=== PATIENT | female | born 1935 | race Caucasian/White ===

== ENCOUNTER 2021-12-22 11:55 | Inpatient (IN) | payer MEDICARE, BC ==
[2021-12-22 12:54] LABS: ALT (SGPT) 8 U/L (8-55); AST (SGOT) 15 U/L (5-34); Albumin 4.2 g/dL (3.4-4.8); Alkaline Phosphatase 168 U/L (40-110); Anion Gap 19 mmol/L (10-20); BUN (Urea Nitrogen) 57 mg/dL (9.8-20.1); Bilirubin, Total 0.8 mg/dL (0.2-1.2); Calc. Creatinine Clearance 0 mL/min (70-130); Calcium 11.1 mg/dL (7.8-10.44); Carbon Dioxide 20 mmol/L (23-31); Chloride 103 mmol/L (98-107); Estimated GFR 21; Globulin 2.6 g/dL (2.4-3.5); Glucose 111 mg/dL (83-110); Potassium 4.8 mmol/L (3.5-5.1); Protein, Total 6.8 g/dL (5.8-8.1); Sodium 137 mmol/L (136-145)
[2021-12-22 13:15] LABS: #Basophils 0.1 thou/uL (0.0-0.2); #Lymphocytes 1.5 thou/uL (1.20-3.40); #Monocytes 0.6 thou/uL (0.11-0.59); #Neutrophils 4.6 thou/uL (1.40-6.50); %Eosinophils 0.1 % (0.0-10.0); %Lymphocytes 22.8 % (21.0-51.0); %Monocytes 8.3 % (0.0-10.0); %Neutrophils 67.8 % (42.0-75.0); CKMB 1.4 ng/mL (0-6.6); Hemoglobin 12.6 g/dL (12.0-16.0); Large Platelets MODERATE; MDiff Complete? YES; Macrocytosis SLIGHT = 6-15 cells (100X) (0-5/hpf); Mean Corpuscular HGB CONC 32.8 g/dL (32.0-36.0); Mean Corpuscular Hemoglobin 33.7 pg (27.0-31.0); Mean Platelet Volume 12.8 fL (7.4-10.4); Ovalocytes SLIGHT = 2-5 cells (100X) (0-1/hpf); Platelet Count 112 thou/uL (130-400); Platelet Morphology Comment Appears Decreased; Polychromasia SLIGHT = 2-3 cells (100X) (0-2/hpf); RBC Distribution Width 13.4 % (11.5-14.5); Red Blood Cell (RBC) Count 3.73 mill/uL (4.20-5.40); White Blood Cell (WBC) Count 6.7 thou/uL (4.8-10.8)
[2021-12-22 13:54] LABS: Magnesium 1.9 mg/dL (1.6-2.6)
[2021-12-22] MEDS ORDERED: Enoxaparin Sodium 30 MG/0.3 ML SYRINGE SC SCH (14:30)
[2021-12-22] MEDS ORDERED: Furosemide 40 MG/4 ML VIAL SLOW IVP SCH (14:45)
[2021-12-22 16:34] VITALS: BMI 30.4
[2021-12-22 17:19] LABS: Troponin I 0.061 ng/mL (< 0.028)
[2021-12-22] MEDS: Heparin 5,000 UNITS/ML VIAL SC SCH (20:47)
[2021-12-23] MEDS ORDERED: Docusate 100 MG CAP PO PRN (07:54)
[2021-12-23] MEDS ORDERED: Acetaminophen ER (8hr) 650 MG TAB PO PRN (07:54)
[2021-12-23] MEDS ORDERED: Spironolactone 25 MG TAB PO SCH (08:00)
[2021-12-23 08:37] LABS: Anion Gap 17 mmol/L (10-20); BUN (Urea Nitrogen) 62 mg/dL (9.8-20.1); Calc. Creatinine Clearance 24 mL/min (70-130); Calcium 10.9 mg/dL (7.8-10.44); Carbon Dioxide 20 mmol/L (23-31); Chloride 105 mmol/L (98-107); Estimated GFR 20; Glucose 89 mg/dL (83-110); Magnesium 1.9 mg/dL (1.6-2.6); Phosphorus 3.1 mg/dL (2.3-4.7); Potassium 4.5 mmol/L (3.5-5.1); Sodium 137 mmol/L (136-145)
[2021-12-23] MEDS ORDERED: Aspirin 81 mg Enteric Coated Tablet PO SCH (09:00)
[2021-12-23] MEDS ORDERED: Enoxaparin Sodium 30 MG/0.3 ML SYRINGE SC SCH (09:00)
[2021-12-23] MEDS: Spironolactone 25 MG TAB PO SCH (09:00)
[2021-12-23] MEDS: Sodium Bicarbonate Tab 325 MG TAB PO SCH ×3 (09:00→20:56)
[2021-12-23] MEDS ORDERED: Aspirin Chewable 81 MG TAB PO SCH (09:00)
[2021-12-23] MEDS: Multivitamin W/ Minerals 1 TAB PO SCH (09:01)
[2021-12-23] MEDS: Allopurinol 100 MG TAB PO SCH (09:01)
[2021-12-23] MEDS: Magnesium Oxide 400 MG TAB PO SCH (09:01)
[2021-12-23] MEDS: Furosemide 20 MG TAB PO SCH ×2 (09:01→14:30)
[2021-12-23] MEDS: Heparin 5,000 UNITS/ML VIAL SC SCH (09:01)
[2021-12-23] MEDS: Carvedilol 6.25 MG TAB PO SCH ×2 (09:01→16:08)
[2021-12-23] MEDS: Ipratropium Bromide 2.5 ml Neb NEB SCH (19:50)
[2021-12-23] MEDS: Apixaban 2.5 MG TAB PO SCH (20:56)
[2021-12-23] MEDS ORDERED: Atorvastatin Calcium 10 MG TAB PO SCH (21:00)
[2021-12-24] MEDS: Ipratropium Bromide 2.5 ml Neb NEB SCH (07:05)
[2021-12-24 07:10] LABS: #Basophils 0.1 thou/uL (0.0-0.2); #Lymphocytes 1.7 thou/uL (1.20-3.40); #Monocytes 0.8 thou/uL (0.11-0.59); #Neutrophils 3.4 thou/uL (1.40-6.50); %Basophils 0.9 % (0.0-1.0); %Eosinophils 0.3 % (0.0-10.0); %Lymphocytes 28.7 % (21.0-51.0); %Monocytes 12.8 % (0.0-10.0); %Neutrophils 57.3 % (42.0-75.0); Hemoglobin 11.8 g/dL (12.0-16.0); Mean Corpuscular HGB CONC 32.5 g/dL (32.0-36.0); Mean Corpuscular Hemoglobin 33.9 pg (27.0-31.0); Mean Platelet Volume 12.1 fL (7.4-10.4); Platelet Count 100 thou/uL (130-400); RBC Distribution Width 13.3 % (11.5-14.5); Red Blood Cell (RBC) Count 3.47 mill/uL (4.20-5.40)
[2021-12-24 07:24] LABS: Anion Gap 15 mmol/L (10-20); BUN (Urea Nitrogen) 59 mg/dL (9.8-20.1); Calc. Creatinine Clearance 26 mL/min (70-130); Calcium 10.5 mg/dL (7.8-10.44); Carbon Dioxide 23 mmol/L (23-31); Chloride 104 mmol/L (98-107); Estimated GFR 23; Glucose 93 mg/dL (83-110); Sodium 138 mmol/L (136-145)
[2021-12-24] MEDS: Magnesium Oxide 400 MG TAB PO SCH (08:27)
[2021-12-24] MEDS: Apixaban 2.5 MG TAB PO SCH (08:27)
[2021-12-24] MEDS: Furosemide 20 MG TAB PO SCH (08:27)
[2021-12-24] MEDS: Sodium Bicarbonate Tab 325 MG TAB PO SCH (08:27)
[2021-12-24] MEDS: Multivitamin W/ Minerals 1 TAB PO SCH (08:27)
[2021-12-24] MEDS: Allopurinol 100 MG TAB PO SCH (08:27)
[2021-12-24] MEDS: Carvedilol 6.25 MG TAB PO SCH (08:27)
[2021-12-24] MEDS: Spironolactone 25 MG TAB PO SCH (08:27)
[2021-12-24 11:20] VITALS: BP 130/60; TEMP 97.4
== END 2021-12-24 13:20 | disposition home or self-care (01) | DRG 291 ==
LOC: ERS 11:55 → ERHOLD 13:49 → 2NO 16:04
PROVIDERS: ADMIT Internal Medicine; ATTEND Internal Medicine
DX: I13.0 Hypertensive heart and chronic kidney disease with heart failure and stage 1 through stage 4 chronic kidney disease, or unspecified chronic kidney disease (principal); I50.23 Acute on chronic systolic (congestive) heart failure; I47.1 Supraventricular tachycardia; N18.4 Chronic kidney disease, stage 4 (severe); N17.9 Acute kidney failure, unspecified; I48.92 Unspecified atrial flutter; I42.8 Other cardiomyopathies; I5A Non-ischemic myocardial injury (non-traumatic); I25.10 Atherosclerotic heart disease of native coronary artery without angina pectoris; I48.91 Unspecified atrial fibrillation; D63.1 Anemia in chronic kidney disease; D69.6 Thrombocytopenia, unspecified; F41.9 Anxiety disorder, unspecified; G89.29 Other chronic pain; M54.9 Dorsalgia, unspecified; E66.01 Morbid (severe) obesity due to excess calories; R79.89 Other specified abnormal findings of blood chemistry; I08.1 Rheumatic disorders of both mitral and tricuspid valves; M10.9 Gout, unspecified; M19.90 Unspecified osteoarthritis, unspecified site; Z60.2 Problems related to living alone; Z20.822 Contact with and (suspected) exposure to COVID-19; Z95.810 Presence of automatic (implantable) cardiac defibrillator; Z88.8 Allergy status to other drugs, medicaments and biological substances; Z88.1 Allergy status to other antibiotic agents; Z88.6 Allergy status to analgesic agent; Z88.5 Allergy status to narcotic agent; Z79.899 Other long term (current) drug therapy; Z79.82 Long term (current) use of aspirin; Z85.528 Personal history of other malignant neoplasm of kidney; Z90.710 Acquired absence of both cervix and uterus; Z90.5 Acquired absence of kidney; Z87.891 Personal history of nicotine dependence; Z98.49 Cataract extraction status, unspecified eye; Z68.29 Body mass index [BMI] 29.0-29.9, adult
CPT/HCPCS: 36415; 71045; 80048; 80053; 82553; 83605; 83735; 83880; 84100; 84484; 85025; 93005; 93306; 94640; J1644; J1940; U0003; U0005

== ENCOUNTER 2023-07-14 23:31 | Inpatient (IN) | payer MEDICARE, BC ==
[2023-07-15 00:12] LABS: Hematocrit 28.8 % (36.0-47.0); Hemoglobin 9.9 g/dL (12.0-16.0); Manual Diff?? YES; Mean Corpuscular HGB CONC 34.4 g/dL (32.0-36.0); Mean Corpuscular Hemoglobin 33.4 pg (27.0-31.0); Mean Corpuscular Volume 97.3 fl (78.0-98.0); Platelet Count 101 10x3/uL (130-400); RBC Distribution Width 13.2 % (11.5-14.5); Red Blood Cell (RBC) Count 2.96 mill/uL (4.20-5.40); White Blood Cell (WBC) Count 6.1 10x3/uL (4.8-10.8)
[2023-07-15 00:13] LABS: Delete Auto Diff?? YES
[2023-07-15 00:25] LABS: INR-International Normal Ratio 1.3; Prothrombin Time 16.3 sec (12.0-14.7)
[2023-07-15 00:26] LABS: PTT 37.1 sec (22.9-36.1)
[2023-07-15 00:45] LABS: ALT (SGPT) 8 U/L (8-55); AST (SGOT) 23 U/L (5-34); Albumin 3.9 g/dL (3.4-4.8); Alkaline Phosphatase 223 U/L (40-110); Anion Gap 13 mmol/L (10-20); BUN (Urea Nitrogen) 77 mg/dL (9.8-20.1); Bilirubin, Total 0.4 mg/dL (0.2-1.2); Calc. Creatinine Clearance 0 mL/min (70-130); Calcium 10.4 mg/dL (7.8-10.44); Carbon Dioxide 22 mmol/L (23-31); Chloride 90 mmol/L (98-107); Estimated GFR 26; Globulin 2.2 g/dL (2.4-3.5); Glucose 128 mg/dL (83-110); Lipase 11 U/L (8-78); Magnesium 1.9 mg/dL (1.6-2.6); Protein, Total 6.1 g/dL (5.8-8.1); Sodium 120 mmol/L (136-145)
[2023-07-15 00:46] LABS: Band 7 % (5-11); CellaVision Operator ID LAB.CLH1; Hypochromia SLIGHT = 6-15 cells HPF (0-5); Large Platelets 64.4 % (0-5); Lymphocytes 17 % (21-51); Metamyelocyte 1 % (0-0); Monocytes 6 % (0-10); Neutrophil 67 % (42-75); Platelet Adequacy Comment Platelets Normal; Total Cell Count 101
[2023-07-15 01:23] LABS: Troponin I 0.026 ng/mL (< 0.028)
[2023-07-15] MEDS ORDERED: hydrALAZINE 20 MG/ML VIAL SLOW IVP PRN (01:51)
[2023-07-15] MEDS: Aspirin Chewable 81 MG TAB PO SCH (04:20)
[2023-07-15 04:26] LABS: Free T4 (Free Thyroxine) 0.87 ng/dL (0.70-1.48)
[2023-07-15 05:49] LABS: #Monocytes 0.3 thou/uL (0.11-0.59); #Neutrophils 3.6 thou/uL (1.40-6.50); %Basophils 0.4 % (0.0-1.0); %Lymphocytes 16.4 % (21.0-51.0); %Monocytes 6.9 % (0.0-10.0); %Neutrophils 75.5 % (42.0-75.0); Hematocrit 30.3 % (36.0-47.0); Hemoglobin 10.4 g/dL (12.0-16.0); Mean Corpuscular HGB CONC 34.3 g/dL (32.0-36.0); Mean Corpuscular Hemoglobin 33.9 pg (27.0-31.0); Mean Corpuscular Volume 98.7 fl (78.0-98.0); Mean Platelet Volume 14.2 fL (7.4-10.4); Platelet Count 108 10x3/uL (130-400); RBC Distribution Width 13.1 % (11.5-14.5); Red Blood Cell (RBC) Count 3.07 mill/uL (4.20-5.40); White Blood Cell (WBC) Count 4.8 10x3/uL (4.8-10.8)
[2023-07-15] MEDS: Levothyroxine Sodium 50 MCG TAB PO SCH (06:10)
[2023-07-15 06:14] LABS: Anion Gap 17 mmol/L (10-20); BUN (Urea Nitrogen) 73 mg/dL (9.8-20.1); Calc. Creatinine Clearance 29 mL/min (70-130); Calcium 10.7 mg/dL (7.8-10.44); Carbon Dioxide 19 mmol/L (23-31); Cardiac Risk 1.5 (Less than 4.5); Chloride 88 mmol/L (98-107); Cholesterol 131 mg/dl (< 200 Desired); Estimated GFR 28; Glucose 138 mg/dL (83-110); HDL Cholesterol 85 mg/dL (>60 Neg Risk); LDL Cholesterol, Calculated 39 mg/dL; Triglycerides 35 mg/dL (Less than 150); Troponin I 0.038 ng/mL (< 0.028)
[2023-07-15 06:15] LABS: Troponin I 0.042 ng/mL (< 0.028)
[2023-07-15 06:23] LABS: Sodium 119 mmol/L (136-145)
[2023-07-15] MEDS: Ipratropium Bromide 2.5 ml Neb NEB SCH (07:12)
[2023-07-15] MEDS: Clorazepate 3.75 MG TAB PO SCH (09:40)
[2023-07-15] MEDS: Apixaban 2.5 MG TAB PO SCH (10:29)
[2023-07-15] MEDS: Aspirin 81 mg Enteric Coated Tablet PO SCH (10:29)
[2023-07-15] MEDS: Sodium Bicarbonate Tab 325 MG TAB PO SCH (10:29)
[2023-07-15] MEDS: Magnesium Oxide 400 MG TAB PO SCH (10:30)
[2023-07-15] MEDS: Allopurinol 100 MG TAB PO SCH (10:30)
[2023-07-15] MEDS: Carvedilol 6.25 MG TAB PO SCH (10:30)
[2023-07-15] MEDS: Sodium Chloride 0.9% 1,000 ML IV SCH (10:30)
[2023-07-15] MEDS: Calcitriol 0.25 MCG CAP PO SCH (10:30)
[2023-07-15] MEDS: Folic Acid 1 MG TAB PO SCH (10:30)
[2023-07-15 13:41] LABS: Anion Gap 12 mmol/L (10-20); BUN (Urea Nitrogen) 70 mg/dL (9.8-20.1); Calc. Creatinine Clearance 29 mL/min (70-130); Calcium 10.2 mg/dL (7.8-10.44); Carbon Dioxide 23 mmol/L (23-31); Chloride 91 mmol/L (98-107); Estimated GFR 28; Glucose 126 mg/dL (83-110); Potassium 4.8 mmol/L (3.5-5.1); Sodium 121 mmol/L (136-145)
[2023-07-15 16:10] LABS: Anion Gap 13 mmol/L (10-20); BUN (Urea Nitrogen) 72 mg/dL (9.8-20.1); Calc. Creatinine Clearance 28 mL/min (70-130); Carbon Dioxide 21 mmol/L (23-31); Chloride 93 mmol/L (98-107); Estimated GFR 27; Glucose 123 mg/dL (83-110); Potassium 4.7 mmol/L (3.5-5.1); Sodium 122 mmol/L (136-145)
[2023-07-15] MEDS: Atorvastatin Calcium 10 MG TAB PO SCH (21:34)
[2023-07-16 05:00] LABS: Anion Gap 11 mmol/L (10-20); BUN (Urea Nitrogen) 75 mg/dL (9.8-20.1); Calc. Creatinine Clearance 24 mL/min (70-130); Calcium 9.7 mg/dL (7.8-10.44); Carbon Dioxide 23 mmol/L (23-31); Chloride 95 mmol/L (98-107); Estimated GFR 22; Glucose 79 mg/dL (83-110); Potassium 5.1 mmol/L (3.5-5.1); Sodium 124 mmol/L (136-145)
[2023-07-16] MEDS ORDERED: Ipratropium Bromide 2.5 ml Neb NEB PRN (07:47)
[2023-07-16] MEDS: Docusate 100 MG CAP PO PRN (10:55)
[2023-07-16 18:46] LABS: Anion Gap 11 mmol/L (10-20); BUN (Urea Nitrogen) 70 mg/dL (9.8-20.1); Calc. Creatinine Clearance 25 mL/min (70-130); Calcium 9.9 mg/dL (7.8-10.44); Carbon Dioxide 24 mmol/L (23-31); Chloride 96 mmol/L (98-107); Estimated GFR 22; Glucose 118 mg/dL (83-110); Potassium 5.3 mmol/L (3.5-5.1); Sodium 126 mmol/L (136-145)
[2023-07-17 05:52] LABS: Anion Gap 14 mmol/L (10-20); BUN (Urea Nitrogen) 69 mg/dL (9.8-20.1); Calc. Creatinine Clearance 25 mL/min (70-130); Calcium 9.5 mg/dL (7.8-10.44); Carbon Dioxide 19 mmol/L (23-31); Chloride 99 mmol/L (98-107); Estimated GFR 22; Glucose 88 mg/dL (83-110); Potassium 5.9 mmol/L (3.5-5.1); Sodium 126 mmol/L (136-145)
[2023-07-17] MEDS: Empagliflozin 10 MG TAB PO SCH (08:53)
[2023-07-17] MEDS: LOKELMA 10 GM PACKET PO SCH (10:19)
[2023-07-17] MEDS: Furosemide 20 MG TAB PO SCH (13:24)
[2023-07-17 16:55] LABS: Bacteria/HPF 4+ HPF (None Seen); Bilirubin Negative (Negative); Blood, Urine 2+ (Negative); Clarity Extra Turbid (Clear); Glucose, Urine (Dipstick) 100 mg/dL (Negative); Ketone, Urine Negative (Negative); Leukocyte 500 Leu/uL (Negative); Nitrite Negative (Negative); Protein, Urine (Dipstick) 70 mg/dL (Neg-Trace); Specific Gravity, Urine 1.008 (1.002-1.036); Urobilinogen Normal mg/dL (Less than 2); WBC/HPF Greater than 50 HPF (0-3); pH, Urine 5.5 (5.0-9.0)
[2023-07-17 17:18] LABS: Creatinine, Urine 47.94 mg/dL (47-110); Microalbumin Urine 25.6 mg/dL (0.5-50.0)
[2023-07-18 05:05] LABS: Anion Gap 13 mmol/L (10-20); BUN (Urea Nitrogen) 75 mg/dL (9.8-20.1); Calc. Creatinine Clearance 27 mL/min (70-130); Calcium 10.5 mg/dL (7.8-10.44); Carbon Dioxide 23 mmol/L (23-31); Chloride 99 mmol/L (98-107); Estimated GFR 24; Glucose 95 mg/dL (83-110); Potassium 4.9 mmol/L (3.5-5.1); Sodium 130 mmol/L (136-145)
[2023-07-18] MEDS: Furosemide 20 MG TAB PO SCH (08:32)
[2023-07-19 06:10] LABS: Hemoglobin 8.5 g/dL (12.0-16.0); Mean Corpuscular HGB CONC 32.7 g/dL (32.0-36.0); Mean Corpuscular Hemoglobin 34.6 pg (27.0-31.0); Mean Corpuscular Volume 105.7 fL (78.0-98.0); Platelet Count 111 10x3/uL (130-400); Red Blood Cell (RBC) Count 2.46 mill/uL (4.20-5.40)
[2023-07-19 06:31] LABS: Anion Gap 12 mmol/L (10-20); BUN (Urea Nitrogen) 86 mg/dL (9.8-20.1); Calc. Creatinine Clearance 26 mL/min (70-130); Calcium 10.9 mg/dL (7.8-10.44); Carbon Dioxide 25 mmol/L (23-31); Chloride 100 mmol/L (98-107); Estimated GFR 24; Glucose 94 mg/dL (83-110); Potassium 5.2 mmol/L (3.5-5.1); Sodium 132 mmol/L (136-145)
[2023-07-19 06:34] LABS: Band 2 % (5-11); Lymphocytes 22 % (21-51); Macrocytosis SLIGHT = 6-15 cells HPF (0-5); Monocytes 14 % (0-10); Neutrophil 63 % (42-75); Platelet Adequacy Comment Platelets Decreased; Smudge Cells 12.7 %
[2023-07-19] MEDS ORDERED: Calcitriol 0.25 MCG CAP PO SCH (07:48)
[2023-07-19] MEDS: Calcitriol 0.25 MCG CAP PO SCH (08:37)
[2023-07-19] MEDS: Lorazepam 0.5 MG TAB PO PRN (19:01)
[2023-07-19] MEDS: Melatonin 3 MG TAB PO PRN (20:26)
[2023-07-20 05:02] LABS: Hemoglobin 8.4 g/dL (12.0-16.0); Mean Corpuscular HGB CONC 32.3 g/dL (32.0-36.0); Mean Corpuscular Hemoglobin 33.5 pg (27.0-31.0); Mean Corpuscular Volume 103.6 fL (78.0-98.0); Mean Platelet Volume 13.8 fL (7.4-10.4); Platelet Count 110 10x3/uL (130-400); RBC Distribution Width 13.9 % (11.5-14.5); Red Blood Cell (RBC) Count 2.51 mill/uL (4.20-5.40)
[2023-07-20 05:31] LABS: Anion Gap 13 mmol/L (10-20); BUN (Urea Nitrogen) 94 mg/dL (9.8-20.1); Calc. Creatinine Clearance 26 mL/min (70-130); Calcium 10.7 mg/dL (7.8-10.44); Carbon Dioxide 25 mmol/L (23-31); Chloride 102 mmol/L (98-107); Estimated GFR 24; Glucose 92 mg/dL (83-110); Sodium 135 mmol/L (136-145)
[2023-07-20 05:38] LABS: Band 2 % (5-11); Hypochromia SLIGHT = 6-15 cells HPF (0-5); Lymphocytes 26 % (21-51); Macrocytosis SLIGHT = 6-15 cells HPF (0-5); Monocytes 8 % (0-10); Neutrophil 62 % (42-75); Platelet Adequacy Comment Platelets Decreased
[2023-07-21 06:12] LABS: Anion Gap 13 mmol/L (10-20); BUN (Urea Nitrogen) 108 mg/dL (9.8-20.1); Calc. Creatinine Clearance 27 mL/min (70-130); Calcium 10.5 mg/dL (7.8-10.44); Carbon Dioxide 23 mmol/L (23-31); Chloride 103 mmol/L (98-107); Estimated GFR 24; Glucose 87 mg/dL (83-110); Potassium 4.4 mmol/L (3.5-5.1); Sodium 135 mmol/L (136-145)
[2023-07-21 08:32] VITALS: BMI 29.3
[2023-07-21] MEDS: Furosemide 20 MG TAB PO SCH (10:03)
[2023-07-22 05:02] LABS: #Basophils 0.05 10x3/uL (0.0-0.2); #Eosinphils Less than 0.03 10x3/uL (0.0-0.7); %Basophils 0.8 % (0.0-1.0); %Eosinophils 0.2 % (0.0-10.0); %Lymphocytes 24.1 % (21.0-51.0); %Monocytes 12.3 % (0.0-10.0); %Neutrophils 61.9 % (42.0-75.0); Hematocrit 26.4 % (36.0-47.0); Hemoglobin 8.7 g/dL (12.0-16.0); Mean Corpuscular Hemoglobin 34.4 pg (27.0-31.0); Mean Corpuscular Volume 104.3 fL (78.0-98.0); Mean Platelet Volume 14.1 fL (7.4-10.4); Platelet Count 124 10x3/uL (130-400); Red Blood Cell (RBC) Count 2.53 mill/uL (4.20-5.40)
[2023-07-22 05:07] LABS: Anion Gap 15 mmol/L (10-20); BUN (Urea Nitrogen) 116 mg/dL (9.8-20.1); Calc. Creatinine Clearance 22 mL/min (70-130); Calcium 10.3 mg/dL (7.8-10.44); Carbon Dioxide 20 mmol/L (23-31); Chloride 105 mmol/L (98-107); Estimated GFR 19; Glucose 97 mg/dL (83-110); Potassium 4.9 mmol/L (3.5-5.1); Sodium 135 mmol/L (136-145)
[2023-07-22 05:46] LABS: Anisocytosis SLIGHT = 6-15 cells HPF (0-5); Macrocytosis SLIGHT = 6-15 cells HPF (0-5); Platelet Adequacy Comment Platelets Decreased
[2023-07-22] MEDS: Sodium Chloride 0.9% 1,000 ML IV SCH (10:45)
[2023-07-22] MEDS: Clorazepate 3.75 MG TAB PO SCH (20:55)
[2023-07-23 05:32] LABS: Anion Gap 15 mmol/L (10-20); BUN (Urea Nitrogen) 116 mg/dL (9.8-20.1); Calc. Creatinine Clearance 26 mL/min (70-130); Calcium 10.4 mg/dL (7.8-10.44); Carbon Dioxide 21 mmol/L (23-31); Chloride 106 mmol/L (98-107); Estimated GFR 23; Glucose 92 mg/dL (83-110); Potassium 4.6 mmol/L (3.5-5.1); Sodium 137 mmol/L (136-145)
[2023-07-23 05:43] LABS: #Basophils 0.03 10x3/uL (0.0-0.2); #Eosinphils Less than 0.03 10x3/uL (0.0-0.7); %Basophils 0.6 % (0.0-1.0); %Eosinophils 0.4 % (0.0-10.0); %Lymphocytes 23.2 % (21.0-51.0); %Monocytes 12.2 % (0.0-10.0); Hematocrit 26.5 % (36.0-47.0); Hemoglobin 8.6 g/dL (12.0-16.0); Mean Corpuscular HGB CONC 32.5 g/dL (32.0-36.0); Mean Corpuscular Hemoglobin 34.1 pg (27.0-31.0); Mean Corpuscular Volume 105.2 fL (78.0-98.0); Mean Platelet Volume 14.2 fL (7.4-10.4); Platelet Count 124 10x3/uL (130-400); RBC Distribution Width 13.9 % (11.5-14.5); Red Blood Cell (RBC) Count 2.52 mill/uL (4.20-5.40)
[2023-07-23 06:32] LABS: Macrocytosis MODERATE=16-30 cells HPF (0-5); Ovalocytes SLIGHT = 2-5 cells HPF (0-1); Platelet Adequacy Comment Platelets Decreased; Polychromasia SLIGHT = 2-3 cells HPF (0-2)
[2023-07-23] MEDS: Sodium Chloride 0.9% 1,000 ML IV SCH (06:33)
[2023-07-24 05:55] LABS: Anion Gap 13 mmol/L (10-20); BUN (Urea Nitrogen) 113 mg/dL (9.8-20.1); Calc. Creatinine Clearance 27 mL/min (70-130); Calcium 10.5 mg/dL (7.8-10.44); Carbon Dioxide 24 mmol/L (23-31); Chloride 107 mmol/L (98-107); Estimated GFR 25; Glucose 103 mg/dL (83-110); Potassium 4.1 mmol/L (3.5-5.1); Sodium 140 mmol/L (136-145)
[2023-07-24 06:46] LABS: #Basophils 0.04 10x3/uL (0.0-0.2); #Eosinphils Less than 0.03 10x3/uL (0.0-0.7); %Basophils 0.8 % (0.0-1.0); %Lymphocytes 19.9 % (21.0-51.0); %Monocytes 12.8 % (0.0-10.0); %Neutrophils 65.7 % (42.0-75.0); Hematocrit 26.4 % (36.0-47.0); Hemoglobin 8.6 g/dL (12.0-16.0); Mean Corpuscular HGB CONC 32.6 g/dL (32.0-36.0); Mean Corpuscular Hemoglobin 34.7 pg (27.0-31.0); Mean Corpuscular Volume 106.5 fL (78.0-98.0); Mean Platelet Volume 14.6 fL (7.4-10.4); Platelet Count 127 10x3/uL (130-400); RBC Distribution Width 13.9 % (11.5-14.5); Red Blood Cell (RBC) Count 2.48 mill/uL (4.20-5.40)
[2023-07-25 11:55] VITALS: TEMP 97.5
[2023-07-25 12:18] VITALS: BP 121/57
== END 2023-07-25 14:06 | disposition home or self-care (01) | DRG 643 ==
LOC: ERS 23:31 → 2SE 07-15 01:48
PROVIDERS: ADMIT Internal Medicine; ATTEND Hospitalist
DX: E22.2 Syndrome of inappropriate secretion of antidiuretic hormone (principal); G93.41 Metabolic encephalopathy; L89.153 Pressure ulcer of sacral region, stage 3; I13.0 Hypertensive heart and chronic kidney disease with heart failure and stage 1 through stage 4 chronic kidney disease, or unspecified chronic kidney disease; N18.4 Chronic kidney disease, stage 4 (severe); I42.9 Cardiomyopathy, unspecified; I50.42 Chronic combined systolic (congestive) and diastolic (congestive) heart failure; N17.9 Acute kidney failure, unspecified; E03.9 Hypothyroidism, unspecified; F41.9 Anxiety disorder, unspecified; Z87.891 Personal history of nicotine dependence; I48.91 Unspecified atrial fibrillation; Z79.01 Long term (current) use of anticoagulants; E87.5 Hyperkalemia; D63.1 Anemia in chronic kidney disease; M10.9 Gout, unspecified; E83.52 Hypercalcemia; Z88.8 Allergy status to other drugs, medicaments and biological substances; Z88.1 Allergy status to other antibiotic agents; Z90.49 Acquired absence of other specified parts of digestive tract; Z90.710 Acquired absence of both cervix and uterus
CPT/HCPCS: 36415; 70450; 80048; 80053; 80061; 81001; 82043; 82274; 82310; 83690; 83735; 83880; 83930; 83935; 84300; 84439; 84443; 84481; 84484; 84540; 85025; 85610; 85730; 93005; 93306; 93880; 94640; 97139; J7050

== ENCOUNTER 2024-01-16 19:33 | Emergency (ER) | payer MEDICARE, BC ==
[2024-01-16 21:07] LABS: #Basophils 0.04 10x3/uL (0.0-0.2); #Eosinphils Less than 0.03 10x3/uL (0.0-0.7); %Basophils 0.7 % (0.0-1.0); %Eosinophils 0.2 % (0.0-10.0); %Lymphocytes 27.1 % (21.0-51.0); %Monocytes 9.5 % (0.0-10.0); Hematocrit 37.2 % (36.0-47.0); Hemoglobin 11.7 g/dL (12.0-16.0); Mean Corpuscular HGB CONC 31.5 g/dL (32.0-36.0); Mean Corpuscular Hemoglobin 31.9 pg (27.0-31.0); Mean Corpuscular Volume 101.4 fL (78.0-98.0); Mean Platelet Volume 14.6 fL (7.4-10.4); Platelet Count 120 10x3/uL (130-400); RBC Distribution Width 16.8 % (11.5-14.5); Red Blood Cell (RBC) Count 3.67 mill/uL (4.20-5.40)
[2024-01-16 21:34] LABS: ALT (SGPT) 7 U/L (8-55); AST (SGOT) 16 U/L (5-34); Albumin 3.9 g/dL (3.4-4.8); Alkaline Phosphatase 305 U/L (40-110); Anion Gap 14 mmol/L (10-20); BUN (Urea Nitrogen) 81 mg/dL (9.8-20.1); Bilirubin, Total 0.5 mg/dL (0.2-1.2); Calc. Creatinine Clearance 0 mL/min (70-130); Calcium 11.1 mg/dL (7.8-10.44); Carbon Dioxide 22 mmol/L (23-31); Chloride 112 mmol/L (98-107); Estimated GFR 17; Globulin 2.5 g/dL (2.4-3.5); Glucose 168 mg/dL (83-110); Potassium 4.4 mmol/L (3.5-5.1); Protein, Total 6.4 g/dL (5.8-8.1); Sodium 144 mmol/L (136-145)
== END 2024-01-16 22:57 | disposition home or self-care (01) ==
LOC: ERS 19:33
DX: I48.91 Unspecified atrial fibrillation (principal); I13.0 Hypertensive heart and chronic kidney disease with heart failure and stage 1 through stage 4 chronic kidney disease, or unspecified chronic kidney disease; N18.9 Chronic kidney disease, unspecified; I50.9 Heart failure, unspecified; Z87.891 Personal history of nicotine dependence; Z95.0 Presence of cardiac pacemaker; Z55.0 Illiteracy and low-level literacy
CPT/HCPCS: 36415; 71045; 80053; 85025; 93005